=== PATIENT | female | born 1970 | race Caucasian/White ===

== ENCOUNTER 2022-08-30 09:06 | Emergency (ER) | payer MEDICAID, SELFPAY ==
--- NOTE | 2022-08-30 09:12 | ED.DENTAL ---
HPI - Dental/Oral General Chief complaint: Dental/Oral Stated complaint: tooth pain Time Seen by Provider: 08/30/22 09:15 Source: patient Mode of arrival: ambulatory Limitations: no limitations History of Present Illness HPI Narrative: Cyndi is a 51-year-old female patient presenting to the clinic today with complaints of dental pain x1 week. She reports her right upper posterior molar is infected and she is needing an antibiotic. States the tooth is broken and she has a hole in it. Related Data Allergies Allergy/AdvReac Type Severity Reaction Status Date / Time unknown ear drop Allergy Other Uncoded 08/30/22 09:19 Review of Systems Review of Systems: Pertinent positives per HPI. Patient denies any fever, chills, rash, headache, visual changes, dizziness, cough, runny nose, sore throat, shortness of breath, chest pain, palpitations, nausea, vomiting, diarrhea, constipation, abdominal pain, or any urinary issues. PMFSH Comments At the time of my signature, I reviewed and agree with the nursing past medical, surgical, social, and family history. There is no relevant family history pertinent to the patient complaint. Exam Narrative: General: Well-developed, well nourished, in no apparent distress Head: Normocephalic, atraumatic Eyes: Pupils equally round and reactive to light bilaterally, EOM intact, sclera and conjunctive clear, no discharge, lids normal Ears: TMs intact and clear, ear canals clear, no drainage, grossly hearing normal. Nose: Nares patent, no discharge, no inflammation, no sinus tenderness. Mouth: Oropharynx without lesions or masses, poor dentition, MMM. Infected right posterior upper molar with decay and swelling of the gums Neck: Supple, trachea midline, no enlargement of anterior or posterior cervical nodes, no thyroid masses or goiter palpable. Cardio: Regular rate and rhythm, s1 and s2 normal, no murmur appreciated. Resp: Clear to auscultation bilaterally anteriorly and posteriorly, no rhonchi, rales, wheezing or rubs Course Course Emergency Course: Portions of this record may have been created with voice recognition software. Level of Care: Express Care Visit Vital Signs Vital signs: Vital signs reviewed MDM - Dental/Oral MDM Narrative Medical decision making narrative: At the time of visit patient is resting comfortably on the exam table. I suspect patient has a dental infection. Prescription for amoxicillin was sent to the pharmacy and supportive measures were discussed with the patient. Dental list and primary care doctor's list was given to the patient Differential Diagnosis Differential diagnosis: Likely gingival abscess, dental caries, toothache, dental abscess and fracture of tooth Discharge Plan Discharge Clinical Impression: Dental infection Patient Disposition: Home, Self-Care Condition: Stable Instructions: Antibiotic Form, Dental Abscess (ED) Additional Instructions: Take amoxicillin as prescribed Take Tylenol/Motrin as needed for pain Increase fluids and stay well hydrated Follow-up with your dentist as soon as possible Prescriptions: New amoxicillin 875 mg tablet 875 mg PO Q12H Qty: 20 0RF Follow-up/Referrals: UNKNOWN,DOCTOR [Primary Care Provider] - Time of Disposition: 09:20 Quality NIHSS Nursing Documentation ED NIHSS nursing documentation: reviewed/agree
[2022-08-30 09:15] VITALS: BP 122/89; PULSE 80; RESP 16; TEMP 36.7; O2SAT 99
== END 2022-08-30 09:23 | disposition home or self-care (01) ==
PROVIDERS: Emergency Provider Nurse Practitioner Family
DX: K04.7 Periapical abscess without sinus (principal)
CPT/HCPCS: 99213; G0463

== ENCOUNTER 2022-12-03 10:50 | Emergency (ER) | payer OTHER, SELFPAY ==
--- NOTE | ~2022-12-03 | XR_ITS ---
EXAMINATION: XR wrist LT min 3V DATE: 12/03/2022 11:06 INDICATION: Left wrist injury and pain. TECHNIQUE: 4 views of left wrist were obtained. COMPARISON: None. FINDINGS: Bone alignment is normal. No fracture. There is mild osteoarthritis of pisotriquetral joint . IMPRESSION: 1. No fracture. Reviewed, dictated and finalized at location A. IMPRESSION: 1. No fracture.
[2022-12-03 10:59] VITALS: BP 136/82; PULSE 86; RESP 16; TEMP 36.6; O2SAT 100
--- NOTE | 2022-12-03 11:24 | ED.UPPEXIN ---
HPI - Extremity Injury (Upper) General Chief Complaint: Extremity Injury, Upper Stated Complaint: Left Wrist Pain Time Seen by Provider: 12/03/22 10:52 Source: patient Mode of arrival: ambulatory Limitations: no limitations History of Present Illness HPI narrative: 52-year-old female presents to [facility] with complaints of pain to current left wrist for the past 5 days. Patient reports that she was wrestling around with her boyfriend 5 days ago when she started with left wrist pain. Patient reports the pain increases with range of motion. Patient reports intermittent numbness and tingling to her left fingers at times. Patient reports that she has been taken [id number] herbal medication for her symptoms with little relief. Patient has been using Bi wrap and applying ice with minimal relief. Patient denies erythema, bruising or open wounds. MD complaint: injury to: left Onset (ago): day(s) (5) Other Extremity Injury: Left: wrist Place: home Relieving factors: immobilization Treatments prior to arrival: cold therapy Related Data Allergies Allergy/AdvReac Type Severity Reaction Status Date / Time unknown ear drop Allergy Other Uncoded 12/03/22 10:57 Review of Systems Constitutional: Constitutional: Denies chills, Denies fatigue, Denies fever(s) and Denies weakness ENT: Denies vertigo and Denies dizziness Cardiovascular: Cardiovascular: Denies chest pain Respiratory: Respiratory: Denies cough, Denies dyspnea and Denies wheezing Gastrointestinal: Gastrointestinal: Denies diarrhea, Denies nausea and Denies vomiting Musculoskeletal: Musculoskeletal: Reports arthralgias, Denies joint swelling and Denies muscle cramps Comments: Left wrist pain Integumentary/Breasts: Skin/Breast: Denies pruritus, Denies erythema, Denies rash and Denies skin ulcer Neurologic: Denies dizziness, Denies syncope and Denies headache(s) PMFSH Comments At time of signature, I agree with nursing past medical, surgical, social and family history. There is no relevant family history pertinent to the presenting complaint. Exam Const: General: healthy appearing Nutritional Appearance: well nourished Orientation/consciousness: patient oriented x3 Limitations: no limitations HENMT: Head: normal to inspection Eyes: Conjunctivae: conjunctivae normal Resp: Effort & Inspection: normal respiratory effort and not labored Auscultation: clear to auscultation bilaterally, no crackles, no rales, no rhonchi and no wheezes Cardio: Rate: regular rate Rhythm: regular rhythm Heart sounds: no murmurs Skin: General skin exam: normal color Rashes: no rashes Wounds: no wounds Neuro: General: patient oriented x3 Speech: normal speech Gait exam (Neuro): Normal gait present Extrem: General: normal to inspection Other: no swelling, erythema or bruising noted to left wrist. hand grasps are equal and strong Pulses are within normal limits Psych: Affect: normal affect Attitude: cooperative Course Course Level of Care: Express Care Visit Vital Signs Vital signs: Vital Signs Temperature 36.6 C 12/03/22 10:59 Pulse Rate 86 12/03/22 10:59 Respiratory Rate 16 12/03/22 10:59 Blood Pressure 136/82 12/03/22 10:59 Pulse Oximetry 100 12/03/22 10:59 Oxygen Delivery Room Air 12/03/22 10:59 Temperature 36.6 C 12/03/22 10:59 Pulse Rate 86 12/03/22 10:59 Respiratory Rate 16 12/03/22 10:59 Blood Pressure 136/82 12/03/22 10:59 Pulse Oximetry 100 12/03/22 10:59 Oxygen Delivery Room Air 12/03/22 10:59 MDM - Extremity Injury (Upper) MDM Narrative Medical decision making narrative: bi wrap applied to left wrist. Patient agrees to take NSAID as prescribed. Patient agrees to call orthopedics tomorrow for an appointment. Rice therapy discussed With patient. Instructed patient to proceed to the emergency room if symptoms worsen Differential Diagnosis Differential diagnosis: Like
== END 2022-12-03 11:40 | disposition home or self-care (01) ==
PROVIDERS: Emergency Provider Nurse Practitioner Family
DX: S63.502A Unspecified sprain of left wrist, initial encounter (principal); S66.912A Strain of unspecified muscle, fascia and tendon at wrist and hand level, left hand, initial encounter; X58.XXXA Exposure to other specified factors, initial encounter; Y93.83 Activity, rough housing and horseplay
CPT/HCPCS: 73110; 99213; G0463

== ENCOUNTER 2022-12-21 16:13 | Outpatient (CLI) | payer OTHER, SELFPAY ==
--- NOTE | ~2022-12-21 | MR_ITS ---
EXAMINATION: MR wrist LT wo con DATE: 12/21/2022 17:04 INDICATION: Suspected lingular fibrocartilage complex tear with posterior left wrist pain TECHNIQUE: Magnetic resonance imaging (MRI) of the left wrist was performed without intravenous contr ast. Sequences performed include axial PD-weighted FSE and PD-weighted FS FSE, coronal PD-weighted FS FSE and T1-weighted SE, and sagittal PD-weighted FS FSE and PD-weighted FSE. COMPARISON: Left wrist radiographs dated 12/03/2022 FINDINGS: Intrinsic ligaments: The scapholunate and lunotriquetral ligaments are normal. Triangular fibrocartilage complex (TFCC): Partial tears of the central fibrocartilaginous disc and dorsal radioulnar ligament of the triangular fibrocartilaginous complex. The ulnotriquetral ligament is normal. The extensor carpi ulnaris tendon sheath is normal. Mild increased fluid signal of the meniscal homologue which could be related to pa rtial tear or reactive edema. Extensor wrist: Extensor tendons of the wrist are normal. No tenosynovitis. Flexor wrist: The flexor tendons of the wrist are normal. No abnormality in the carpal tunnel with normal median n erve. Guyon's canal: Guyon's canal including the ulnar nerve and artery are normal. Bones/other: Normal marrow signal. 1-2 mm ulnar positive variance evident on the prior radiographs. There is mild edema-like signal change along the ulnar margin of the proximal articular surface of the lunate in ty pical location for ulnocarpal impaction. No fracture or pathologic marrow replacing process. Mild ost eoarthritis at the left wrist with nonuniform partial-thickness cartilage loss at the radiolunate art iculation. Remaining joint spaces appear relatively preserved. Nonspecific erosion versus cystic staley ge at the dorsal/radial aspect of the distal capitate. Footplate of the ligament extending to the adj acent trapezoid. IMPRESSION: 1. Constellation of findings consistent with ulnocarpal impaction including one-2 mm ulnar positive v ariance on the prior radiographs, partial tear of the triangular fibrocartilage complex and edema-lik e signal change at the ulnar margin of the proximal lunate. 2. 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 3. Nonspecific cystic change versus erosion at the radial side of the distal capitate. Reviewed, dictated and finalized at location A. IMPRESSION: 1. Constellation of findings consistent with ulnocarpal impaction including one -2 mm ulnar positive variance on the prior radiographs, partial tear of the tri angular fibrocartilage complex and edema-like signal change at the ulnar margin of the proximal lunate. 2. 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 3. Nonspecific cystic change versus erosion at the radial side of the distal ca pitate.
== END 2022-12-21 16:14 | disposition home or self-care (01) ==
PROVIDERS: PCP Internal Medicine Infectious Disease; Visit Provider Orthopaedic Surgery
DX: S69.92XA Unspecified injury of left wrist, hand and finger(s), initial encounter (principal); X58.XXXA Exposure to other specified factors, initial encounter; M19.032 Primary osteoarthritis, left wrist
CPT/HCPCS: 73221

== ENCOUNTER 2023-03-05 16:58 | Emergency (ER) | payer OTHER, SELFPAY ==
--- NOTE | ~2023-03-05 | XR_ITS ---
EXAM: XR hip RT 2V w AP pelvis DATE: 03/05/2023 17:43 HISTORY: trauma . COMPARISON: None available. FINDINGS: Normal mineralization. No fracture or dislocation. No lytic or blastic lesion. Amorphous c alcification over the right greater trochanter, likely calcific tendinitis. Mild bilateral hip osteoa rthritis and osteitis pubis. No erosion or periosteal change. Soft tissues within normal limits. IMPRESSION: No acute osseous finding in the pelvis or right hip. Reviewed, dictated and finalized at location K.
[2023-03-05 17:08] VITALS: BP 156/94; PULSE 100; RESP 16; TEMP 37; O2SAT 98
--- NOTE | 2023-03-05 17:59 | ED.GENADULT ---
HPI - General Adult General Chief complaint: Fall Stated complaint: fall Time Seen by Provider: 03/05/23 17:16 History of Present Illness HPI narrative: Patient is a 52-year-old female who presents ER with right hip pain. Patient excellently stepped into a cistern next to her compost heat. Her entire left leg went down to the whole and then her right knee went upwards. She strained her right hip and has had pain with walking since then. No numbness or tingling. She did not strike her head or lose consciousness. She did bump her left chest wall but has no difficulty breathing. Pain was worsening today so she came in for further evaluation Related Data Allergies Allergy/AdvReac Type Severity Reaction Status Date / Time allantoin [From Blistex] Allergy Intermediate Swelling Verified 03/05/23 17:47 Review of Systems Constitutional: Constitutional: Reports no additional constitutional complaints Musculoskeletal: Musculoskeletal: Denies back pain, Reports arthralgias, Denies joint swelling and Denies muscle cramps Integumentary/Breasts: Skin/Breast: Reports system reviewed and no additional complaints, except as docu Neurologic: Reports system reviewed and no additional complaints, except as documented [facility] Past Medical History Medical History (Updated 03/05/23 @ 18:00 by Godfrey Norman MD) Abdominal pain Anxiety Constipation Depression 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 Vision abnormalities Surgical History Surgical History (Updated 12/14/22 @ 08:10 by Marisol Abreu) History of medial meniscus repair of left knee History of partial hysterectomy Hx of decompression of ulnar nerve LEFT- 2020 Family History Family History (Updated 12/14/22 @ 08:11 by Marisol Abreu) Unknown Hypertension Depression Social History Social History (Updated 01/01/23 @ 08:24 by Abby Astudillo MA) Smoking packs per day: 1 Smoking cigarettes per day: 20.0 Years smoked: 20 Smoking pack-years: 20.00 Smoking status: Current every day smoker Tobacco type: cigarettes Alcohol intake: current Substance use type: does not use Lack of Transportation: No Lack of Food: Sometimes True Current Housing: I Have Housing Concerned About Future Housing: No Difficulty Paying Gas/Electric Bills: YES Difficulty Paying for Meds: No Currently Unemployed: No Education: High School Diploma/GED Difficulty w/ Childcare or Family Care: No Living arrangements: with family Occupation/Education: occupation 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 HEAD: Normocephalic, atraumatic. CHEST: Clear to auscultation. No respiratory distress. HEART: Regular rate and rhythm. Normal peripheral pulses. ABDOMEN: Soft, nontender, nondistended. EXTREMITIES: Normal range of motion. No edema. SKIN: Warm, dry, no rash. NEURO: Alert and oriented x3. PSYCH: Normal mood and affect. Course Course Emergency Course: Patient resting comfortably. Informed results. Discharge home with anti-inflammatories and muscle relaxers. Vital Signs Vital signs: Vital Signs Temperature 98.6 F 03/05/23 17:08 Pulse Rate 100 03/05/23 17:08 Respiratory Rate 16 03/05/23 17:08 Blood Pressure 156/94 H 03/05/23 17:08 Pulse Oximetry 98 03/05/23 17:08 Oxygen Delivery Room Air 03/05/23 17:08 Temperature 98.6 F 03/05/23 17:08 Pulse Rate 100 03/05/23 17:08 Respiratory Rate 16 03/05/23 17:08 Blood Pressure 156/94 H 03/05/23 17:08 Pulse Oximetry 98 03/05/23 17:08 Oxygen Delivery Room Air 03/05/23 17:08 Medical Decision Making Vital Signs Vital Signs: Vital Signs Temperature 98.6 F 03/05/23 17:08 Pulse Rate 100 03/05/23 17:08 Respiratory Rate 16 03/05/23 17:08 Blood Pressure 156/94 H
== END 2023-03-05 18:07 | disposition home or self-care (01) ==
PROVIDERS: Emergency Provider Emergency Medicine; PCP Nurse Practitioner Family
DX: S76.011A Strain of muscle, fascia and tendon of right hip, initial encounter (principal); F17.210 Nicotine dependence, cigarettes, uncomplicated; F41.9 Anxiety disorder, unspecified; F32.A Depression, unspecified; W18.42XA Slipping, tripping and stumbling without falling due to stepping into hole or opening, initial encounter
CPT/HCPCS: 73502; 99283

== ENCOUNTER 2023-04-30 09:17 | Emergency (ER) | payer OTHER, SELFPAY ==
--- NOTE | 2023-04-30 09:22 | ED.URI ---
HPI - URI/Sore Throat General Chief Complaint: Dental/Oral Stated Complaint: Sinus Time Seen by Provider: 04/30/23 09:22 Source: patient Mode of arrival: ambulatory Limitations: no limitations History of Present Illness HPI Narrative: Cyndi is a 52-year-old female patient presenting to the clinic today with complaints of sinus congestion and dental pain x2 weeks. She reports she has also had a fever of 38.1? C. states that she thinks that she has a dental infection as well as sinus infection. She denies any chest pain or shortness of breath. She denies any known exposure to anyone with COVID, flu, or strep. MD elicited complaint: fever, nasal congestion and sinus pain Related Data Allergies Allergy/AdvReac Type Severity Reaction Status Date / Time allantoin [From Blistex] Allergy Intermediate Swelling Verified 03/05/23 17:47 Review of Systems Review of Systems: Pertinent positives per HPI. Patient denies any fever, chills, rash, headache, visual changes, dizziness, cough, shortness of breath, chest pain, palpitations, nausea, vomiting, diarrhea, constipation, abdominal pain, or any urinary issues. 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 Vision abnormalities Surgical History Surgical History History of medial meniscus repair of left knee History of partial hysterectomy Hx of decompression of ulnar nerve LEFT- 2019 Family History Family History Unknown Hypertension Depression Social History Social History Smoking packs per day: 1 Smoking cigarettes per day: 20.0 Years smoked: 20 Smoking pack-years: 20.00 Smoking status: Current every day smoker Tobacco type: cigarettes Alcohol intake: current Substance use type: does not use Lack of Transportation: No Lack of Food: Sometimes True Current Housing: I Have Housing Concerned About Future Housing: No Difficulty Paying Gas/Electric Bills: YES Difficulty Paying for Meds: No Currently Unemployed: No Education: High School Diploma/GED Difficulty w/ Childcare or Family Care: No Living arrangements: with family Occupation/Education: occupation 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 There is no relevant family history pertinent to the patient complaint. Exam Narrative: General: Well-developed, well nourished, in no apparent distress Head: Normocephalic, atraumatic Eyes: Pupils equally round and reactive to light bilaterally, EOM intact, sclera and conjunctive clear, no discharge, lids normal Ears: TMs intact and clear, ear canals clear, no drainage, grossly hearing normal. Nose: Nares patent, yellow nasal discharge, severe inflammation to the right near right maxillary sinus tenderness. Mouth: Oral pharynx without lesions or masses, poor dentition, MMM. Postnasal drip, dental infection to the right posterior molar with redness and swelling to the gums Neck: Supple, trachea midline, no enlargement of anterior or posterior cervical nodes, no thyroid masses or goiter palpable. Cardio: Regular rate and rhythm, s1 and s2 normal, no murmur appreciated. Resp: Clear to auscultation bilaterally, no rhonchi, rales, wheezing or rubs Course Course Emergency Course: Portions of this record may have been created with voice recognition software. Level of Care: Express Care Visit Vital Signs Vital signs: Vital Signs Temperature 38.1 C H 04/30/23 09:46 Pulse Rate 87 04/30
[2023-04-30 09:46] VITALS: BP 153/87; PULSE 87; RESP 16; TEMP 38.1; O2SAT 98
== END 2023-04-30 10:35 | disposition home or self-care (01) ==
PROVIDERS: Emergency Provider Nurse Practitioner Family
DX: J01.90 Acute sinusitis, unspecified (principal); K04.7 Periapical abscess without sinus; Z90.711 Acquired absence of uterus with remaining cervical stump; F17.210 Nicotine dependence, cigarettes, uncomplicated
CPT/HCPCS: 99213; G0463